=== PATIENT | male | born 1985 | race Caucasian/White ===

== ENCOUNTER 2016-11-15 12:54 | Emergency (ER) | payer MEDICAID ==
[~2016-11-15] VITALS: Ht 172.7 cm; Wt 83.0 kg
[2016-11-15 12:56] VITALS: Ht 172.7 cm; Wt 83.0 kg
--- NOTE | 2016-11-15 13:34 | ERD ---
ER Documentation Chief Complaint Date/Time DATE: 11/15/16 TIME: 13:31 Chief Complaint left testicular pain since am, denies injury HPI Patient is a 31-year-old male who presents complaining of left-sided testicular pain that he has had for 4 days however the pain got worse today. Currently he rates it as a dull 5 out of 10 nonradiating. He denies any dysuria hematuria or increased urinary frequency. He denies any fever. Denies any nausea or vomiting or diarrhea. Denies any recent unprotected sex. Denies any penile discharge. ROS All systems reviewed and are negative except as per history of present illness. Medications Home Meds Active Scripts Ciprofloxacin Hcl* (Ciprofloxacin Hcl*) 500 Mg Tablet, 500 MG PO BID for 7 Days , TAB Prov:SYLWIA ARMSTRONG PA-C 11/15/16 Allergies Allergies: Coded Allergies: No Known Allergy (Unverified , 11/15/16) FmHx Family History: No diabetes Physical Exam Vitals Vital Signs Date Time Temp Pulse Resp B/P Pulse Ox O2 Delivery O2 Flow Rate FiO2 11/15/16 12:56 98.3 72 18 135/77 98 Physical Exam General: well developed, well nourished, alert, nontoxic, no distress Head: normocephalic, atraumatic Neck: Supple, nontender, no lymphadenopathy, no midline tenderness Respiratory: Clear to auscaultation bilaterally, speaks in full sentences, no use of accesory muscles or labored breathing, no rales, ronchi, or wheezing Cardiovascular: RRR, No murmurs GI: soft, non tender, non distended, negative murphys sign, negative mcburneys point tenderness, no cva tenderness bilaterally, no rebound or guarding : No inguinal lymphadenopathy, bilateral testicles descended and nontender, no testicular swelling Results 24 hrs Laboratory Tests Test 11/15/16 14:21 Bedside Urine pH (LAB) 7.0 Bedside Urine Protein (LAB) 2+ Bedside Urine Glucose (UA) 0.1% Bedside Urine Ketones (LAB) Negative Bedside Urine Blood 2+ Bedside Urine Nitrite (LAB) Positive Bedside Urine Leukocyte Esterase (L Negative Procedures/MDM This is an otherwise healthy 31-year-old male who has had worsening testicular pain for the past 4 days. He is well-appearing in no distress and his vital signs are within normal limits. No fever, nausea, vomiting. He has no CVA tenderness. I doubt renal stone or obstruction, however it is possible he passed a kidney stone. Urinalysis and testicular ultrasound ordered. Ultrasound was unremarkable other than mild bilateral hydroceles. Urinalysis did show evidence of infection. His urine was sent for culture and he was treated with Cipro. Recommended this patient follow up with her primary care doctor within 48 hours or return to the emergency room for any worsening of symptoms. However this time I do believe there is suitable for outpatient management. I answered all their questions and they agreed with the plan and were discharged home. Departure Diagnosis: Primary Impression: Cystitis Condition: Stable SYLWIA ARMSTRONG PA-C Nov 15, 2016 13:34
--- NOTE | 2016-11-15 13:47 | RADRPT ---
PROCEDURE: US Scrotum. CLINICAL INDICATION: Scrotal pain. TECHNIQUE: Multiple sonographic images of the scrotal region were obtained utilizing a linear arra y transducer with grayscale and color-flow and pulsed Doppler imaging. The images were reviewed on a high-resolution PACS workstation. COMPARISON: No prior studies are available for comparison. FINDINGS: The right testis measures 4.5 x 2.1 x 2.9 cm. The left testis measures 4.1 x 2.1 x 2.7 cm. There is no intratesticular mass. The epididymi are normal. There is normal flow to both testes demonstrated with color Doppler and pulsed Doppler sonography. There are small bilateral hydroceles. There is no varicocele. The scrotal wall is unremarkable. IMPRESSION: 1. Small bilateral hydroceles. 2. Otherwise normal scrotal ultrasound. RPTAT: QQ .Nato Rome MD, Date Time Electronically viewed and signed by .Nato Rome MD, on 11/15/2016 13:46 .R/
[2016-11-15 14:15] LABS: URINE BLOOD (Dip) POC 2+ (NEGATIVE)
[2016-11-15] MEDS ORDERED: CIPR500T4 PO (14:27)
[2016-11-15 14:33] VITALS: BP 125/76; PULSE 79; RESP 18; TEMP 98.1
[2016-11-22 16:13] LABS: URINE BLOOD (Dip) POC 2+ (NEGATIVE)
== END 2016-11-15 14:33 | disposition home or self-care (01) ==
LOC: FTE 12:54
DX: N30.00 Acute cystitis without hematuria (principal)
CPT/HCPCS: 76870; 81003